=== PATIENT | male | born 1930 | race Caucasian/White ===

== ENCOUNTER 2018-06-30 22:58 | Inpatient (IN) | payer MEDICARE ==
[~2018-06-30] VITALS: Ht 182.9 cm; Wt 74.3 kg
[~2018-06-30 22:58] MED LIST: ACET325 PO; AMLO5 PO; AMOX875; BUDE32NIS; CIPR250 PO; CLON.1 PO; DILT240; DILT240 PO; FAMC500 PO; FAMO20 PO; FLUSAL5005; FURO20 PO; HYDACE5325 PO; IRON PO; Loperamide2 MG PO; METO50ER; NEBI10 PO; NEBI5 PO; NORT10 PO; OLME20 PO; OLMESARTAN MEDO40 MG PO; POTCHL10ER PO; PRED10; PRED10 PO; PRED5; PRED5 PO; STOMUL; TELM80/12.5 PO; VALS80
[2018-06-30 23:47] LABS: BASOPHILS ABSOLUTE AUTO 0.02 K/mm3 (0.00-0.23); BASOPHILS PERCENT AUTO 0 % (0-2); EOSINOPHILS ABSOLUTE AUTO 0.03 K/mm3 (0.00-0.68); EOSINOPHILS PERCENT AUTO 0 % (0-6); Hematocrit 31.3 % (37.0-53.0); Hemoglobin 9.9 g/dL (13.5-17.5); IMMATURE GRAN ABSOLUTE AUTO 0.07 K/mm3 (0.00-0.10); IMMATURE GRAN PERCENT AUTO 0 % (0-1); LYMPHOCYTES ABSOLUTE AUTO 1.59 K/mm3 (0.84-5.20); LYMPHOCYTES PERCENT AUTO 10 % (21-46); MONOCYTES ABSOLUTE AUTO 1.12 K/mm3 (0.16-1.47); MONOCYTES PERCENT AUTO 7 % (4-13); Mean Corpuscular HGB 29.7 pg (26.0-34.0); Mean Corpuscular HGB Conc 31.6 g/dL (31.5-36.5); Mean Corpuscular Volume 94 fL (80-100); Mean Platelet Volume 9.5 fL (9.1-12.4); NEUTROPHILS ABSOLUTE AUTO 12.97 K/mm3 (1.96-9.15); NEUTROPHILS PERCENT AUTO 82 % (41-73); Platelet Count 236 K/mm3 (150-400); RDW Coefficient Variation 13.3 % (11.7-14.2); RDW Standard Deviation 46.1 fL (35.1-46.3); Red Blood Cell Count 3.33 M/mm3 (4.30-5.90)
[2018-07-01 00:01] LABS: International Normalized Ratio 1.03; Prothrombin Time Results 10.9 Sec (9.7-11.5)
[2018-07-01] MEDS ORDERED: LISI20 PO (00:04)
[2018-07-01] MEDS ORDERED: HYDCHL12.5 PO (00:04)
[2018-07-01] MEDS ORDERED: OMEPRAZOLE20 MG PO (00:04)
[2018-07-01 00:06] LABS: Albumin, Blood 3.2 g/dL (3.4-5.0); Albumin/Globulin Ratio 1.1 (0.8-1.8); Bilirubin, Total 0.6 mg/dL (0.1-1.0); Bun/Creatinine Ratio 23.1 (12.0-20.0); Calcium, Blood 7.9 mg/dL (8.5-10.1); Creatinine, Blood 2.08 mg/dL (0.60-1.20); Globulin, Blood 2.8 g/dL (2.2-4.0); Potassium, Blood 4.9 mmol/L (3.5-5.5)
--- NOTE | 2018-07-01 04:10 | NUR ---
NOC SHIFT SUMMARY PT BROUGHT TO FLOOR THIS NIGHT AT 0245 IN THE COMPANY OF HIS TWO DAUGHTERS. HE IS HARD OF HEARING. HE IS PLEASANT AND COOPERATIVE WITH CARE. VSS. CURRENTLY APPEARS IN NO ACUTE DISTRESS. HE IS AAO TO PERSON, PLACE, FAMILY, AND KNOWS WHO THE PRESIDENT IS. NO BLOODY STOOLS AT THIS TIME. WILL CONTINUE TO MONITOR.
[2018-07-01 05:03] LABS: BASOPHILS ABSOLUTE AUTO 0.02 K/mm3 (0.00-0.23); BASOPHILS PERCENT AUTO 0 % (0-2); EOSINOPHILS ABSOLUTE AUTO 0.03 K/mm3 (0.00-0.68); EOSINOPHILS PERCENT AUTO 0 % (0-6); Hemoglobin 9.8 g/dL (13.5-17.5); IMMATURE GRAN ABSOLUTE AUTO 0.07 K/mm3 (0.00-0.10); IMMATURE GRAN PERCENT AUTO 1 % (0-1); LYMPHOCYTES ABSOLUTE AUTO 2.14 K/mm3 (0.84-5.20); LYMPHOCYTES PERCENT AUTO 15 % (21-46); MONOCYTES ABSOLUTE AUTO 1.15 K/mm3 (0.16-1.47); MONOCYTES PERCENT AUTO 8 % (4-13); Mean Corpuscular HGB 29.2 pg (26.0-34.0); Mean Corpuscular HGB Conc 31.6 g/dL (31.5-36.5); Mean Corpuscular Volume 92 fL (80-100); Mean Platelet Volume 9.2 fL (9.1-12.4); NEUTROPHILS ABSOLUTE AUTO 11.17 K/mm3 (1.96-9.15); NEUTROPHILS PERCENT AUTO 77 % (41-73); Platelet Count 214 K/mm3 (150-400); RDW Coefficient Variation 13.5 % (11.7-14.2); Red Blood Cell Count 3.36 M/mm3 (4.30-5.90); White Blood Cell Count 14.58 K/mm3 (4.00-11.30)
[2018-07-01 05:31] LABS: Albumin, Blood 3.1 g/dL (3.4-5.0); Albumin/Globulin Ratio 1.1 (0.8-1.8); Bun/Creatinine Ratio 21.5 (12.0-20.0); Calcium, Blood 8.2 mg/dL (8.5-10.1); Creatinine, Blood 2.05 mg/dL (0.60-1.20); Globulin, Blood 2.9 g/dL (2.2-4.0); Potassium, Blood 4.8 mmol/L (3.5-5.5)
[2018-07-01 10:47] LABS: Adenovirus F 40/41 Not Detected (NOT DETECT); Astrovirus Not Detected (NOT DETECT); Campylobacter Sp Not Detected (NOT DETECT); Cryptosporidium Not Detected (NOT DETECT); Cyclospora Cayetanensis Not Detected (NOT DETECT); E. Coli O157 Not Detected (NOT DETECT); Entamoeba Histolytica Not Detected (NOT DETECT); Enteroaggregative E. coli-EAEC Not Detected (NOT DETECT); Enteropathogenic E. coli-EPEC Not Detected (NOT DETECT); Enterotoxigenic E. coli-ETEC Not Detected (NOT DETECT); Giardia Lamblia Not Detected (NOT DETECT); Norovirus GI/GII Not Detected (NOT DETECT); Plesiomonas Shigelloides Not Detected (NOT DETECT); Rotavirus A Not Detected (NOT DETECT); Salmonella Sp Not Detected (NOT DETECT); Sapovirus Not Detected (NOT DETECT); Shiga Toxin-prod E. coli-STEC Not Detected (NOT DETECT); Shigella/Enteroin E. coli-EIEC Not Detected (NOT DETECT); Vibrio Cholerae Not Detected (NOT DETECT); Vibrio Sp Not Detected (NOT DETECT); Yersinia Enterocolitica Not Detected (NOT DETECT)
--- NOTE | 2018-07-01 13:50 | NUR ---
PT. TEMP OF 103.8 WAS COVERED WITH 500 MG TYLENOL, RETOOK TEMP AT 1350 AND TEMP STILL AT 101.1. BLANKETS REMOVED FROM BED AND ONLY A SHEET COVERING PT. ACROSS THE MIDDLE. SEVERAL FAMILY MEMBERS ARE PRESENT IN ROOM.
--- NOTE | 2018-07-01 19:05 | NUR ---
DR. SABILLON IN TO SEE PT. THIS EVENING. PLANS ON DOING A COLONOSCOPY ON PT TOMORROW AFTER OFFICE HOURS. FEELS THE PT. HAS ISCHEMIC COLITIS. PT. HAS RUN FEVER ALL DAY TODAY. HIGHEST WAS 103.8 KEPT UNDER CONTROL BY TYLENOL. PT. IMPULSIVE, DOES NOT USE CALL LIGHT, SWEARS HE PUSHES IT OR PULLS BR CORD BUT DOES NOT.
--- NOTE | 2018-07-02 03:48 | NUR ---
SHIFT SUMMARY PT ADMITTED FOR COLITIS. FULL CODE. CLEAR LIQUID DIET. WATER OR ICE CHIPS ONLY AT 0600. NPO AT 1400 FOR COLONOSCOPY. GOLYTELY STARTS AT 0600. NS RUNNING AT 75 MLS/HR. PT IS STANDBY ASSIST TO 1 ASSIST TO THE BR. TAKES MEDICATIONS WHOLE. 20G ARYA TO R FA. PT HAS HAD FEVER UP TO 103.8, INCREASED MONITORING AND PT UP TO 100, ADMINISTERED MEDS PER EMAR DOWN TO 99.7, WILL CONTINUE TO MONITOR. PT IS [place] WITH HEARING AID. DR SABILLON CONSULTED AND POSSIBLE ISCHEMIC COLITIS PER REPORT. THE PT PRESENTED WITH CHIEF C/O DIARRHEA ACCOMPANIED BY LL QUADRANT PAIN. [facility]. THE PT WITH NOTED PROBABLE COLITIS WITH INFECTION AND SEPSIS PER REPORT. THE PT IS PLEASENT AND COOPERATIVE WITH CARE. PT IS FORGETFUL WITH POOR SAFETY AWARENESS. PT HAS APPEARED TO SLEEP COMFORTABLY MOST OF THE NIGHT WITH NO APPARENT SIGNS OF ACUTE DISTRESS. FREQUENT VISUAL CHECKS PT DOES NOT USE CALL LIGHT APPROPRIATELY. BED ALARM FOR SAFETY.
[2018-07-02 05:26] LABS: BASOPHILS ABSOLUTE AUTO 0.02 K/mm3 (0.00-0.23); BASOPHILS PERCENT AUTO 0 % (0-2); EOSINOPHILS ABSOLUTE AUTO 0.05 K/mm3 (0.00-0.68); EOSINOPHILS PERCENT AUTO 0 % (0-6); Hematocrit 30.5 % (37.0-53.0); Hemoglobin 9.6 g/dL (13.5-17.5); IMMATURE GRAN ABSOLUTE AUTO 0.08 K/mm3 (0.00-0.10); IMMATURE GRAN PERCENT AUTO 1 % (0-1); LYMPHOCYTES ABSOLUTE AUTO 1.89 K/mm3 (0.84-5.20); LYMPHOCYTES PERCENT AUTO 13 % (21-46); MONOCYTES ABSOLUTE AUTO 1.13 K/mm3 (0.16-1.47); MONOCYTES PERCENT AUTO 8 % (4-13); Mean Corpuscular HGB 28.8 pg (26.0-34.0); Mean Corpuscular HGB Conc 31.5 g/dL (31.5-36.5); Mean Corpuscular Volume 92 fL (80-100); Mean Platelet Volume 9.5 fL (9.1-12.4); NEUTROPHILS ABSOLUTE AUTO 11.48 K/mm3 (1.96-9.15); NEUTROPHILS PERCENT AUTO 79 % (41-73); Platelet Count 193 K/mm3 (150-400); RDW Coefficient Variation 13.6 % (11.7-14.2); RDW Standard Deviation 45.3 fL (35.1-46.3); Red Blood Cell Count 3.33 M/mm3 (4.30-5.90); White Blood Cell Count 14.65 K/mm3 (4.00-11.30)
[2018-07-02 05:39] LABS: Albumin, Blood 2.9 g/dL (3.4-5.0); Bilirubin, Total 0.8 mg/dL (0.1-1.0); Bun/Creatinine Ratio 15.3 (12.0-20.0); Calcium, Blood 8.2 mg/dL (8.5-10.1); Creatinine, Blood 1.83 mg/dL (0.60-1.20); Potassium, Blood 4.3 mmol/L (3.5-5.5); Total Protein, Blood 5.9 g/dL (6.4-8.2)
[2018-07-02 05:43] LABS: Percent Saturation 4.7 % (20.0-50.0)
--- NOTE | 2018-07-02 18:47 | NUR ---
SUMMARY PT IS A/O X3, PLEASANT AFFECT, COOPERATIVE WITH BOWEL PREP. UP 1 ASSSIT TO BSC. FAMILY @ BEDSIDE T/O DAY. STOOLS BECAME CLEAR YELLOW W MUCOUS FLECKS APPROX 1200. PT NPO @ 1400. IV NS INFUSING @ 75 ML/HR, IV ANTIBX ZOSYN Q6. VSS. DAY LABORER ORCHARD UP TO GET PT FOR COLONOSCOPY W DR SABILLON @ APPROX 1800, FAMILY FOLLOW TO OR. VSS.
--- NOTE | 2018-07-02 19:08 | NUR ---
07/02/18 190 Jesse Concepcion History, Chart, Medications and Allergies reviewed before start of procedure.MONITOR INTACT WITH CONTINUOUS PULSE OXIMETRY AND INTERMITTENT BP.3-LEAD EKG REVIEWED WITH PHYSICIAN PRIOR TO START OF PROCEDURE.O2 VIA N/C INTACT THROUGHOUT SEDATION/PROCEDURE. Patient confirms NPO status and agrees with scheduled surgery.PATIENT DETERMINED TO BE ASA APPROPRIATE FOR PROPOFOL SEDATION PRIOR TO START OF PROCEDURE BY DR. SABILLON.
--- NOTE | 2018-07-03 06:50 | NUR ---
Rn summary: Pt was received from surgical center post colonoscopy at 2024. Patient is alert and oriented, is [place], Alert and oriented x3. Pt vital signs have been stable. Family was at bedside and Dr. Corea did talk with them about findings from the procedure. Pt has been pain free. Pt has rested fair, better the second half of shift. Call light in reach. Will continue to monitor.
[2018-07-03 08:33] LABS: BASOPHILS ABSOLUTE AUTO 0.03 K/mm3 (0.00-0.23); BASOPHILS PERCENT AUTO 0 % (0-2); EOSINOPHILS ABSOLUTE AUTO 0.17 K/mm3 (0.00-0.68); EOSINOPHILS PERCENT AUTO 2 % (0-6); Hematocrit 30.4 % (37.0-53.0); Hemoglobin 9.7 g/dL (13.5-17.5); IMMATURE GRAN ABSOLUTE AUTO 0.03 K/mm3 (0.00-0.10); IMMATURE GRAN PERCENT AUTO 0 % (0-1); LYMPHOCYTES ABSOLUTE AUTO 1.89 K/mm3 (0.84-5.20); LYMPHOCYTES PERCENT AUTO 20 % (21-46); MONOCYTES ABSOLUTE AUTO 0.61 K/mm3 (0.16-1.47); MONOCYTES PERCENT AUTO 7 % (4-13); Mean Corpuscular HGB 29.5 pg (26.0-34.0); Mean Corpuscular HGB Conc 31.9 g/dL (31.5-36.5); Mean Corpuscular Volume 92 fL (80-100); Mean Platelet Volume 9.6 fL (9.1-12.4); NEUTROPHILS ABSOLUTE AUTO 6.54 K/mm3 (1.96-9.15); NEUTROPHILS PERCENT AUTO 71 % (41-73); Platelet Count 221 K/mm3 (150-400); RDW Coefficient Variation 13.3 % (11.7-14.2); RDW Standard Deviation 45.5 fL (35.1-46.3); Red Blood Cell Count 3.29 M/mm3 (4.30-5.90); White Blood Cell Count 9.27 K/mm3 (4.00-11.30)
[2018-07-03 08:54] LABS: Bun/Creatinine Ratio 14.3 (12.0-20.0); Calcium, Blood 8.5 mg/dL (8.5-10.1); Creatinine, Blood 1.47 mg/dL (0.60-1.20); Potassium, Blood 4.1 mmol/L (3.5-5.5)
--- NOTE | 2018-07-03 14:40 | NUR ---
Chance was alert, friendly and in good humor. He was well supported by immediate and extended family. No indications of distress or anxiety. Her reported symptoms consitent with minor indegestion or reflux which were relayed by the family to the managing nurse. I provided social attention, positive life review and pastoral encouragement. The room responded well to the attention, care, and show of interest and concern.
--- NOTE | 2018-07-03 17:14 | NUR ---
SUMMARY PT IS A/O X3, PLEASANT AFFECT. 1 ASSIST TO BR. STATE WEAKNESS/FATIGUE. FAMILY ATTENTIVE, @ BEDSIDE T/O DAY. STATE CONCERNS PT MAY NEED PHYTHER, DR LEIJA IN TO SEE THEM, ANSWER QUESTIONS/CONCERNS, STATE WILL ORDER PHYTHER. CARRIER BLOWER STATE NOTICED SM AMT BLOOD IN STOOL TODAY. EXPLAINED TO PT/FAMILY THAT THIS IS NOT UNEXPECTED AFTER COLONOSCOPY, THEY STATE THAT DR SABILLON TOLD THEM THER MIGHT BE SM AMT BLOOD TODAY, STATE MULT POLYPS REMOVED & INTERNAL HEMORRHOIDS. H&H IMPROVED @ 9.7/30.4. BP HAS BEEN SOMEWHAT ELEVATED, DR LEIJA AWARE, HAS ADJUSTED BP MEDS. PT TOLERATING DIET WELL HOWEVER HAD SOME INDIGESTION THIS AFTERNOON, DR TELLEZ TO GIVE MICKEY MIST, PT STATE RELIEF. NO FEVER TODAY. IV NS @ 75 ML/HR & IVPB ZOSYN CONTINUE.
[2018-07-04 05:11] LABS: BASOPHILS ABSOLUTE AUTO 0.02 K/mm3 (0.00-0.23); BASOPHILS PERCENT AUTO 0 % (0-2); EOSINOPHILS ABSOLUTE AUTO 0.18 K/mm3 (0.00-0.68); EOSINOPHILS PERCENT AUTO 2 % (0-6); Hematocrit 26.9 % (37.0-53.0); Hemoglobin 8.6 g/dL (13.5-17.5); IMMATURE GRAN ABSOLUTE AUTO 0.03 K/mm3 (0.00-0.10); IMMATURE GRAN PERCENT AUTO 0 % (0-1); LYMPHOCYTES ABSOLUTE AUTO 1.88 K/mm3 (0.84-5.20); LYMPHOCYTES PERCENT AUTO 22 % (21-46); MONOCYTES ABSOLUTE AUTO 0.76 K/mm3 (0.16-1.47); MONOCYTES PERCENT AUTO 9 % (4-13); Mean Corpuscular HGB 28.9 pg (26.0-34.0); Mean Corpuscular Volume 90 fL (80-100); Mean Platelet Volume 9.4 fL (9.1-12.4); NEUTROPHILS ABSOLUTE AUTO 5.53 K/mm3 (1.96-9.15); NEUTROPHILS PERCENT AUTO 66 % (41-73); Platelet Count 189 K/mm3 (150-400); RDW Coefficient Variation 13.2 % (11.7-14.2); RDW Standard Deviation 43.8 fL (35.1-46.3); Red Blood Cell Count 2.98 M/mm3 (4.30-5.90)
[2018-07-04 05:35] LABS: Bun/Creatinine Ratio 15.7 (12.0-20.0); Calcium, Blood 8.2 mg/dL (8.5-10.1); Creatinine, Blood 1.72 mg/dL (0.60-1.20)
--- NOTE | 2018-07-04 05:47 | NUR ---
SHIFT SUMMARY PT HAD FEVER AT BEDTIME, MEDICATED WITH TYLENOL. SLEPT WELL T/O THE NIGHT. NO ACUTE EVENTS OVER NIGHT AND NO REPORTS OF BLOOD WITH BOWEL MOVEMENT THIS AM. WILL CONTINUE TO MONITOR.
[2018-07-04] MEDS ORDERED: METR500 (13:15)
--- NOTE | 2018-07-04 14:35 | NUR ---
PT. DISCHARGED HOME WITH DAUGHTER AND INSTRUCTIONS WENT OVER WITH HER. H/H TO FOLLOW PATIENT AT HOME.
== END 2018-07-04 14:40 | disposition home health service (06) | DRG 872 ==
LOC: ER 22:58 → MEDS 07-01 02:24 → ENPENDDIS 07-04 12:48 → MEDS 07-04 14:40
PROVIDERS: Emergency Medicine; Internal Medicine; Internal Medicine Gastroenterology; ADMIT Internal Medicine
PROC: 0DBH8ZX Excision of Cecum, Via Natural or Artificial Opening Endoscopic, Diagnostic (ICD-10-PCS; principal; 2018-07-02 17:45)
PROC: 0DBL8ZX Excision of Transverse Colon, Via Natural or Artificial Opening Endoscopic, Diagnostic (ICD-10-PCS; 2018-07-02 17:45)
PROC: 0DBP8ZX Excision of Rectum, Via Natural or Artificial Opening Endoscopic, Diagnostic (ICD-10-PCS; 2018-07-02 17:45)
PROC: 0W3P8ZZ Control Bleeding in Gastrointestinal Tract, Via Natural or Artificial Opening Endoscopic (ICD-10-PCS; 2018-07-02 17:45)
DX: A41.9 Sepsis, unspecified organism (principal); K55.9 Vascular disorder of intestine, unspecified; D69.3 Immune thrombocytopenic purpura; K52.9 Noninfective gastroenteritis and colitis, unspecified; K44.9 Diaphragmatic hernia without obstruction or gangrene; K21.9 Gastro-esophageal reflux disease without esophagitis; M10.9 Gout, unspecified; E86.0 Dehydration; K57.30 Diverticulosis of large intestine without perforation or abscess without bleeding; K64.8 Other hemorrhoids; D12.6 Benign neoplasm of colon, unspecified; I12.9 Hypertensive chronic kidney disease with stage 1 through stage 4 chronic kidney disease, or unspecified chronic kidney disease; N18.2 Chronic kidney disease, stage 2 (mild)
CPT/HCPCS: 36415; 80048; 80053; 82728; 83540; 83550; 83605; 84145; 85025; 85610; 85651; 87040; 87507; 88305; 93005; 93010; 96360; 96361; 97116; 97161; 97165; 99285-25; A9270-GY; J2543; J2704; J7030; J7040; J7120; J7512

== ENCOUNTER 2019-06-26 05:52 | Inpatient (IN) | payer OTHER, MEDICARE ==
[~2019-06-26] VITALS: Ht 180.3 cm; Wt 77.1 kg
[~2019-06-26 05:52] MED LIST changes: +HYDCHL12.5 PO; +LISI20 PO; +METR500; +OMEPRAZOLE20 MG PO; +Zithromax250 MG PO; +Zofran4 MG PO
[2019-06-26] MEDS ORDERED: HYDCHL25 PO (06:02)
[2019-06-26] MEDS ORDERED: LISI5 PO (06:02)
[2019-06-26] MEDS ORDERED: CITA20 PO (06:04)
[2019-06-26 06:24] LABS: BASOPHILS ABSOLUTE AUTO 0.03 K/mm3 (0.00-0.23); BASOPHILS PERCENT AUTO 0 % (0-2); EOSINOPHILS ABSOLUTE AUTO 0.05 K/mm3 (0.00-0.68); EOSINOPHILS PERCENT AUTO 0 % (0-6); Hematocrit 37.3 % (37.0-53.0); Hemoglobin 11.9 g/dL (13.5-17.5); IMMATURE GRAN ABSOLUTE AUTO 0.07 K/mm3 (0.00-0.10); IMMATURE GRAN PERCENT AUTO 1 % (0-1); LYMPHOCYTES ABSOLUTE AUTO 1.85 K/mm3 (0.84-5.20); LYMPHOCYTES PERCENT AUTO 12 % (21-46); MONOCYTES ABSOLUTE AUTO 1.42 K/mm3 (0.16-1.47); MONOCYTES PERCENT AUTO 10 % (4-13); Mean Corpuscular HGB 27.9 pg (26.0-34.0); Mean Corpuscular HGB Conc 31.9 g/dL (31.5-36.5); Mean Corpuscular Volume 87 fL (80-100); Mean Platelet Volume 9.5 fL (9.1-12.4); NEUTROPHILS ABSOLUTE AUTO 11.58 K/mm3 (1.96-9.15); NEUTROPHILS PERCENT AUTO 77 % (41-73); Platelet Count 228 K/mm3 (150-400); RDW Coefficient Variation 14.6 % (11.7-14.2); RDW Standard Deviation 46.9 fL (35.1-46.3); Red Blood Cell Count 4.27 M/mm3 (4.30-5.90)
[2019-06-26 06:39] LABS: Albumin, Blood 3.6 g/dL (3.4-5.0); Albumin/Globulin Ratio 0.9 (0.8-1.8); Bilirubin, Total 1.3 mg/dL (0.1-1.0); Bun/Creatinine Ratio 31.4 (12.0-20.0); Creatinine, Blood 1.72 mg/dL (0.60-1.20); Globulin, Blood 4.1 g/dL (2.2-4.0); Potassium, Blood 3.9 mmol/L (3.5-5.5); Total Protein, Blood 7.7 g/dL (6.4-8.2)
[2019-06-26 10:51] LABS: Adenovirus Not Detected (NOT DETECT); Coronavirus 229E Not Detected (NOT DETECT); Coronavirus HKU1 Not Detected (NOT DETECT); Coronavirus NL63 Not Detected (NOT DETECT); Coronavirus OC43 Not Detected (NOT DETECT); Human Metapneumovirus Not Detected (NOT DETECT); Human Rhinovirus/Enterovirus Not Detected (NOT DETECT); Influenza A/2009-H1 Not Detected (NOT DETECT); Influenza A/H1 Not Detected (NOT DETECT); Influenza A/H3 Not Detected (NOT DETECT); Influenza B Not Detected (NOT DETECT); Parainfluenza Virus 1 Not Detected (NOT DETECT); Parainfluenza Virus 2 Not Detected (NOT DETECT); Parainfluenza Virus 3 Not Detected (NOT DETECT); Parainfluenza Virus 4 Not Detected (NOT DETECT)
[2019-06-26 10:52] LABS: Bordetella pertussis Not Detected (NOT DETECT); Chlamydophila pneumoniae Not Detected (NOT DETECT); Mycoplasma pneumoniae Not Detected (NOT DETECT); Respiratory Syncytial Virus Not Detected (NOT DETECT)
[2019-06-26] MEDS ORDERED: A AND D OINTM42.5 G1 TOP (15:30)
[2019-06-26] MEDS ORDERED: AMLO5 PO (15:31)
[2019-06-26] MEDS ORDERED: ASCO500 PO (15:33)
[2019-06-26] MEDS ORDERED: Voltaren100 GM TOP (15:34)
[2019-06-26] MEDS ORDERED: Fergon240 M1 PO (15:35)
[2019-06-26] MEDS ORDERED: RECTIV30 GM TOP (15:42)
--- NOTE | 2019-06-26 16:20 | NUR ---
Chance was resting and appeared stable and undisturbed. No indications of visceral pain or anxiety noted. He roused to acoustic interference and responded favorably to social presence, verbal encouragement and prayer. 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 I got the disticnt impression, that although he recognized me, he couldnt fully contextualize me. He thanked me for the visit. I reported to the RN that Chance's hearing aid was displaced on his bed covers. She said that she would collect it and put it in a container for safe keeping and loss prevention. Lambert Hernandez ThD
--- NOTE | 2019-06-26 18:22 | NUR ---
SHIFT SUMMARY PATIENT IS CONFUSED AND EXTREMELY HARD OF HEARING. HE IS REQURING 4L O2 AT THIS TIME. CONTINUES TO TAKE IT OFF HIS FACE. SLEEPING MUCH OF SHIFT. THIS RN HAS BEEN IN CONTACT WITH THE HOSPITALIST REGARDING INCREASED HR. GIVEN ORAL IBUPROFEN PER EMAR. ON TELE. REQUESTS TO CONTINUE TO MONITOR.
[2019-06-27 04:39] LABS: BASOPHILS ABSOLUTE AUTO 0.02 K/mm3 (0.00-0.23); BASOPHILS PERCENT AUTO 0 % (0-2); EOSINOPHILS ABSOLUTE AUTO 0.01 K/mm3 (0.00-0.68); EOSINOPHILS PERCENT AUTO 0 % (0-6); Hematocrit 35.3 % (37.0-53.0); Hemoglobin 11.2 g/dL (13.5-17.5); IMMATURE GRAN ABSOLUTE AUTO 0.07 K/mm3 (0.00-0.10); IMMATURE GRAN PERCENT AUTO 1 % (0-1); LYMPHOCYTES ABSOLUTE AUTO 0.79 K/mm3 (0.84-5.20); LYMPHOCYTES PERCENT AUTO 6 % (21-46); MONOCYTES ABSOLUTE AUTO 1.25 K/mm3 (0.16-1.47); MONOCYTES PERCENT AUTO 9 % (4-13); Mean Corpuscular HGB Conc 31.7 g/dL (31.5-36.5); Mean Corpuscular Volume 88 fL (80-100); Mean Platelet Volume 9.5 fL (9.1-12.4); NEUTROPHILS ABSOLUTE AUTO 11.47 K/mm3 (1.96-9.15); NEUTROPHILS PERCENT AUTO 84 % (41-73); Platelet Count 191 K/mm3 (150-400); RDW Coefficient Variation 14.8 % (11.7-14.2); RDW Standard Deviation 47.6 fL (35.1-46.3); White Blood Cell Count 13.61 K/mm3 (4.00-11.30)
[2019-06-27 04:56] LABS: Bun/Creatinine Ratio 28.1 (12.0-20.0); Calcium, Blood 8.5 mg/dL (8.5-10.1); Creatinine, Blood 1.96 mg/dL (0.60-1.20); Potassium, Blood 4.3 mmol/L (3.5-5.5)
--- NOTE | 2019-06-27 05:37 | NUR ---
SHIFT SUMMARY ASSUMED CARE OF PT AT 1900. PT IS ALERT BUT NOT ORIENTED. PT IS VERY [place] PATIENT DOES NOT ANSWER QUESTIONS WHEN ASKED AND STARES. WHEN CHANGING THE PT THE PT LEGS AND ARMS SHOOK UNCONTROLABLY. HEART SOUNDS TACHY, PICKING SUPERVISOR STATED SINUS WITH PVC @ 110. LUNG SOUNDS CLEAR, PT WAS TURNED DOWN TO 3L NC PER RT. DURING THE NIGHT PT HR INCREASED INTO THE 120'S PER PICKING SUPERVISOR. UPON ASSESSMENT OF VITALS, BP WAS INCREASE TO ABOVE 170 SYSTOLIC, AND OXYGEN SATURATION WAS AT 85%, PT HAD TAKEN OFF O2 BUT EVEN WHEN PUT BACK ON SATURATIONS STAYED AT 88-90%, PT GIVEN HYDRALAZINE AND BP DECREASED TO 150'S SYSTOLIC. OXYGEN SATURATION STAYED AT 88%, TURNED UP TO 4L AND STILL THE SATURATION ONLY WHEN TO 90%. RT NOTIFIED AND LUNG SOUNDS NOW HAVE CRACKLES, UPON ASSESSMENT, PT WAS ON HYDROCHLOROTHIAZIDE BEFORE THE HOSPITAL, RT SUGGESTED THAT PT GET IV LASIX. HOSPITALIST NOTIFIED AND GIVEN 40MG LASIX. PT ALSO HAD ELEVATED TEMP DURING THE NIGHT. PT FAMILY CALLED FOR AN UPDATE, WHEN MENTIONED THE PATIENTS INCREASED TEMP SOMETIMES MEANS THAT HE HAS A UTI. PT TEMP WAS DIFFICULT TO GET ACCURATLY DUE TO BITING OF THE ORAL THERMOMETER. TYLENOL GIVEN ONCE AND THEN PT WAS 'ICED', REASSESSMENT SHOWED ORAL TEMP AT 98.4. HOSPITALIST NOTIFIED OF THIS AND ASKED FOR UA. STRAIGHT CATH WAS UNSUCCESSFUL DUE TO HX OF BPH. PT HADNT ATTEMPTES TO GET OUT OF BED UNIL 0550 THIS AM AND IT WAS BECUASE HE HAD TO PEE. SAMPLE WAS SENT TO LAB. CALL LIGHT IN REACH, BED IN LOWEST POSITION, WILL CONTINUE TO MONITOR UNTIL DAYSHIFT NURSE ARRIVES.
[2019-06-27 06:08] LABS: Source, Urine Catheter
[2019-06-27 06:13] LABS: Bilirubin, Urine Neg (Neg); Blood, Urine 1+ (Neg); Glucose Qualitative, Urine Neg (Neg); Ketones, Urine Neg (Neg); Leukocyte Esterase, Urine Neg (Neg); Nitrite, Urine Neg (Neg); Protein, Urine 2+ (Neg); Urobilinogen, Urine NORM (Normal)
[2019-06-27 06:20] LABS: Appearance, Urine Clear (Clear); Color, Urine Yellow (P-Yellow)
[2019-06-27 06:21] LABS: Amorphous Light (0-Heavy); Bacteria Rare /hpf; Red Blood Cells, Urine 0-2 /hpf (0-2); Squamous Epithelial Cells Rare /hpf (Few); White Blood Cells, Urine 0-2 /hpf (0-5)
[2019-06-27 06:24] LABS: Other Crystals Many /hpf
--- NOTE | 2019-06-27 18:01 | NUR ---
SHIFT SUMMARY PATIENT DENIES PAIN, NAUSEA, AND SHORTNESS OF BREATH. PATIENT PLEASANTLY CONFUSED AND VERY HARD OF HEARING. PATIENT UP IN RECLINER WITH 2 ASSIST AND GAIT BELT/FWW. PATIENT GIVEN TYLENOL X1 FOR FEVER OF 101.7 THIS EVENING. CALL LIGHT IN REACH.
[2019-06-28 04:57] LABS: BASOPHILS ABSOLUTE AUTO 0.03 K/mm3 (0.00-0.23); BASOPHILS PERCENT AUTO 0 % (0-2); EOSINOPHILS PERCENT AUTO 0 % (0-6); Hematocrit 37.1 % (37.0-53.0); Hemoglobin 11.4 g/dL (13.5-17.5); IMMATURE GRAN ABSOLUTE AUTO 0.09 K/mm3 (0.00-0.10); IMMATURE GRAN PERCENT AUTO 1 % (0-1); LYMPHOCYTES ABSOLUTE AUTO 1.18 K/mm3 (0.84-5.20); LYMPHOCYTES PERCENT AUTO 8 % (21-46); MONOCYTES ABSOLUTE AUTO 1.16 K/mm3 (0.16-1.47); MONOCYTES PERCENT AUTO 8 % (4-13); Mean Corpuscular HGB 27.7 pg (26.0-34.0); Mean Corpuscular HGB Conc 30.7 g/dL (31.5-36.5); Mean Corpuscular Volume 90 fL (80-100); Mean Platelet Volume 9.9 fL (9.1-12.4); NEUTROPHILS PERCENT AUTO 84 % (41-73); Platelet Count 243 K/mm3 (150-400); RDW Coefficient Variation 15.3 % (11.7-14.2); RDW Standard Deviation 50.5 fL (35.1-46.3); Red Blood Cell Count 4.12 M/mm3 (4.30-5.90); White Blood Cell Count 15.06 K/mm3 (4.00-11.30)
[2019-06-28 05:16] LABS: Albumin, Blood 3.1 g/dL (3.4-5.0); Anion Gap 13 mmol/L (6-16); Blood Urea Nitrogen 72 mg/dL (8-24); Bun/Creatinine Ratio 31.2 (12.0-20.0); CO2, Blood 23 mmol/L (21-32); Calcium, Blood 8.9 mg/dL (8.5-10.1); Chloride, Blood 107 mmol/L (98-108); Creatinine, Blood 2.31 mg/dL (0.60-1.20); Glomerular Filtration Rate 29 (60-); Glucose, Blood 113 mg/dL (70-99); Phosphorus, Blood 3.9 mg/dL (2.5-4.9); Potassium, Blood 4.4 mmol/L (3.5-5.5); Sodium, Blood 143 mmol/L (136-145)
--- NOTE | 2019-06-28 05:28 | NUR ---
SHIFT SUMMARY ASSUMED CARE OF PT AT 1900. PT IS ALERT BUT NOT ORIENTED, PT IS VERY [place] EVEN WITH HEARING AIDES AND CANT UNDERSTAND BASIC COMMANDS, SUCH TO CLOSE MOUTH ON ORAL THERMOMETER STICK. HEART SOUNDS REGULAR, LUNG SOUNDS CLEAR WITH FINE CRACKLES ON THE R SIDE. PT REPEATIVLY TAKES OFF O2 DURING THE NIGHT. O2 SATURATION AT 88-91% ON 4L NC. PT HAS BEEN FEBRILE T/O THE NIGHT. TYLENOL GIVEN, PT STILL AT 100.1 DEGREES RECTALLY. PT ATTEMPTED TO GET OUT OF BED ONCE. PT WAS INCON T/O THE NIGHT. PT DID NOT SLEEP WHEN DURING THE NIGHT. CALL LIGHT IN REACH, BED IN LOWEST POSTION, WILL CONTINUE TO MONITOR UNTIL DAYSHIFT NURSE ARRIVES.
--- NOTE | 2019-06-28 16:48 | NUR ---
SHIFT SUMMARY PATIENT DENIES PAIN, NAUSEA, AND SHORTNESS OF BREATH. PATIENT BECOMES DYSPNEIC AT TIMES. PRN BREATHING TX NEEDED. PATIENT NEEDS TO BE FREQUENTLY REMINDED TO LEAVE HIS OXYGEN IN PLACE. PATIENT TREMULOUS AT TIMES. PATIENT'S DAUGHTER STATES THIS IS NORMAL FOR PATIENT. PATIENT HAD CXR TODAY. PATIENT UP IN CHAIR THE FIRST HALF OF SHOFT. PATIENT GIVEN TYLENOL FOR LOW GRADE FEVER X2 THIS SHIFT. CALL LIGHT IN REACH.
[2019-06-28 23:15] LABS: PCO2 Arterial 34.2 mmHg (35-45); PO2 Arterial 68.4 mmHg (80-100); pH Blood Arterial 7.46 (7.35-7.45)
--- NOTE | 2019-06-29 00:08 | NUR ---
SUMMARY PT FOUND AT BEGINNING OF SHIFT FEBRILE W/ NOTED TREMORS. PT WAS O2 VIA NC @ 5 LPMS. APPOX 2200 HRS PT WAS NOTED TO HAVE INCREASED RESP. RATE AND HR. PT SPO2 WAS FOUND TO BE IN 80'S. RT EVALUATED PT AND STATED PT MAY BENEFIT FROM CPAP. PROVIDER EDY CALLED AND INFORMED OF SITUATION. PROVIDER ORDERED CPAP, TELE AND CONTINOUS SPO2 MONITORING. PROVIDER ASSESSED PT AND FOUND PT TO REQUIRE INTUBATION AND ORDERED PT TRANSFER TO ICU.
[2019-06-29 03:16] LABS: Source, Urine Catheter
[2019-06-29 03:17] LABS: Bilirubin, Urine Neg (Neg); Blood, Urine 5+ (Neg); Glucose Qualitative, Urine Neg (Neg); Ketones, Urine 1+ (Neg); Leukocyte Esterase, Urine 1+ (Neg); Nitrite, Urine Neg (Neg); Protein, Urine 3+ (Neg); Specific Gravity, Urine 1.015 (1.003-1.022); Urobilinogen, Urine NORM (Normal)
[2019-06-29 03:29] LABS: BASOPHILS ABSOLUTE AUTO 0.03 K/mm3 (0.00-0.23); BASOPHILS PERCENT AUTO 0 % (0-2); EOSINOPHILS PERCENT AUTO 0 % (0-6); Hematocrit 34.4 % (37.0-53.0); Hemoglobin 10.7 g/dL (13.5-17.5); IMMATURE GRAN ABSOLUTE AUTO 0.08 K/mm3 (0.00-0.10); IMMATURE GRAN PERCENT AUTO 1 % (0-1); LYMPHOCYTES PERCENT AUTO 8 % (21-46); MONOCYTES ABSOLUTE AUTO 1.07 K/mm3 (0.16-1.47); MONOCYTES PERCENT AUTO 7 % (4-13); Mean Corpuscular HGB Conc 31.1 g/dL (31.5-36.5); Mean Corpuscular Volume 90 fL (80-100); Mean Platelet Volume 9.6 fL (9.1-12.4); NEUTROPHILS ABSOLUTE AUTO 13.22 K/mm3 (1.96-9.15); NEUTROPHILS PERCENT AUTO 85 % (41-73); Platelet Count 245 K/mm3 (150-400); RDW Coefficient Variation 15.5 % (11.7-14.2); RDW Standard Deviation 50.8 fL (35.1-46.3); Red Blood Cell Count 3.82 M/mm3 (4.30-5.90)
[2019-06-29 03:39] LABS: Appearance, Urine Hazy (Clear); Color, Urine Yellow (P-Yellow); Red Blood Cells, Urine TNTC /hpf (0-2)
[2019-06-29 03:40] LABS: Amorphous Light (0-Heavy); Bacteria Few /hpf; Squamous Epithelial Cells Few /hpf (Few)
[2019-06-29 03:50] LABS: Albumin, Blood 3.1 g/dL (3.4-5.0); Anion Gap 11 mmol/L (6-16); Blood Urea Nitrogen 91 mg/dL (8-24); Bun/Creatinine Ratio 33.1 (12.0-20.0); CO2, Blood 25 mmol/L (21-32); Calcium, Blood 8.6 mg/dL (8.5-10.1); Chloride, Blood 110 mmol/L (98-108); Creatinine, Blood 2.75 mg/dL (0.60-1.20); Glomerular Filtration Rate 23 (60-); Glucose, Blood 94 mg/dL (70-99); Phosphorus, Blood 4.2 mg/dL (2.5-4.9); Sodium, Blood 146 mmol/L (136-145)
--- NOTE | 2019-06-29 05:44 | NUR ---
ASSUMED PT CARE/END OF SHIFT SUMMARY PT TRANSFERRED TO ICU FROM MEDICAL FLOOR SECONDARY TO INCREASED OXYGEN DEMANDS AND WORK OF BREATHING. PT ARRIVED WITH 15L VIA OXYMIZER WITH BIOX LOW 90'S. PT SWITCHED TO CPAP WITH 5L BLEED IN WITH BIOX 96%. PT REMAINS TACHYPNEIC WITH RESP RATE 20-30'S. LUNG SOUNDS REMAIN CLEAR T/O ALL LOBES. RHYTHM APPEARED IRREGULAR AND AFIB AT FIRST D/T TREMORS; HOWEVER, ONCE TREMORS SETTLED A LITTLE IT APPEARED PT WAS IN WAP WITH A HR 120-130'S. BP'S ELEVATED WITH SBP 160'S-190'S. PT MEDICATED WITH 10MG OF LEBATOLOL PER ORDERS; RESULTING IN SBP'S 140-150'S. PT IS VERY [place] AND NOTED TO BE NONVERBAL. STARES AT CEILING; HOWEVER, ABLE TO TRACK WITH EYES. PT APPEARS VERY ANXIOUS AND SCARED; ATTEMPTED TALK DOWN TECHNIQUE; HOWEVER, UNEFFECTIVE. PT APPEARS VERY CONFUSED SECONDARY TO DEMENTIA DX. WILL CONTINUE TO REASSURE ON AN ONGOING BASIS. 14F COUDE HASSAN CATHETER PLACED AND UA SENT PER PROTOCOL; PT IS PUTTING OUT DARK, ELIZABETH COLORED URINE; 100CC THIS SHIFT. PT MEDICATED WITH TYLENOL 650MG VA X2 AND ASPIRIN 300MG VA X1 D/T ELEVATED TMAX OF 103.1. PT IS CURRENTLY AT 99.7 AFTER BEING MEDICATED AND ICE PACKS BEING PLACED. PT IS A HIGH FALL RISK AND REMAINS ON THE CAMERA, WELL HAS THE BED ALARM IN PLACE. WILL CONTINUE TO MONITOR UNTIL REPORT IS HANDED OFF TO ONCOMING RN.
--- NOTE | 2019-06-29 09:38 | NUR ---
CARE ASSUMED ASSESSMENT COMPLETED, PT NONVERBAL AT THIS TIME, DOES NOT FOLLOW DIRECTIONS, DOES TRACK. TREMULOUS IN ALL EXTREMS, STIFF. HR 100-120 IRREGULAR, APPEARS TO BE AFIB, BP STABLE, NO EDEMA NOTED. LS CLEAR, PT ON CPAP, TOLERATING WELL. ATTENDS CHANGED, PT REPOSITIONED, SAT UP IN BED TO ATTEMPT BREAKFAST. PT WOULD NOT CHEW OR SWALLOW FOOD, FOOD REMOVED AND ORAL CARE PROVIDED. CPAP BACK ON. DR. GALDAMEZ AT BEDSIDE, NEW ORDERS RECEIVED. RECTAL TYLENOL ADMINISTERED FOR FEVER, ICE PACKS UNDER ARMS, TEMP DECREASED TO 99.3 AFTER INTERVENTIONS. RECTAL PROBE THERMOMETER INSERTED, READS 100.0. WILL UPDATE DAUGHTER.
--- NOTE | 2019-06-29 10:56 | NUR ---
UPDATE EKG COMPLETED, RHYTHM IS AFIB, DR. GALDAMEZ NOTIFIED. WILL NOTIFY FAMILY OF APPROVAL TO VISIT PT, PT REMAINS FULL CODE STATUS AT THIS TIME PER PT'S DAUGHTER AND DR. GALDAMEZ.
[2019-06-29 11:28] LABS: PCO2 Arterial 32.5 mmHg (35-45); PO2 Arterial 78.7 mmHg (80-100); pH Blood Arterial 7.45 (7.35-7.45)
[2019-06-29 12:19] LABS: Magnesium, Blood 2.7 mg/dL (1.6-2.4)
[2019-06-29 12:21] LABS: Thyroid Stimulating Hormone 1.53 uIU/mL (0.360-4.800)
--- NOTE | 2019-06-29 12:25 | NUR ---
Echocardiogram completed.
--- NOTE | 2019-06-29 13:26 | NUR ---
UPDATE DR. PELAEZ IN TO CONSULT, NEW ORDERS. ATIVAN AND KEPPRA ADMINISTERED FOR TREMORS, MINIMAL RELIEF NOTED. ECHO COMPLETED, REPORTED EF 45-50% PER CURB AND GUTTER LABORER. LS REMAIN CLEAR, CPAP ON WITH 5L BLEED IN, TOLERATING CPAP WELL. PT MEDICATED FOR HYPERTENSION AND TACHYCARDIA. TEMPERATURE REMAINS BELOW 100.0 PER RECTAL PROBE, WILL CONTINUE TO MONITOR. PLANNING FOR CT LATER TODAY AND EEG EARLY NEXT WEEK. AND SON IN TO SEE PATIENT AT THIS TIME. TREMORS AND RESTLESSNESS HAVE DECREASED BUT REMAIN MILDLY PRESENT.
--- NOTE | 2019-06-29 15:16 | NUR ---
UPDATE PT'S AND SON AT BEDSIDE, REPORT THAT PT IS USUALLY VERBAL AND ABLE TO COMMUNICATE NEEDS. PT REMAINS RESTLESS WITH EYES CLOSED MOST OF THE TIME, OCCASIONAL MOANING NOTED BUT NO WORDS. PT NOT INTERACTING WITH FAMILY. NEURO STATUS UNCHANGED SINCE AM ASSESSMENT. BP IMPROVED AFTER LABETOLOL, HR REMAINS 100-[address] PELAEZ IN TO SPEAK WITH PT'S FAMILY REGARDING PLAN OF CARE, PT REMAINS FULL CODE. TEMP 99.7.
--- NOTE | 2019-06-29 16:21 | NUR ---
UPDATE ATTEMPTED HEAD CT, PT UNABLE TO LIE STILL FOR TEST, DOES NOT FOLLOW DIRECTIONS. DR. PELAEZ AWARE THAT CT WAS UNSUCCESSFUL.
--- NOTE | 2019-06-29 19:16 | NUR ---
END OF SHIFT PRECEDEX INITIATED AND TITRATED UP TO 0.7 FOR RESTLESSNESS/AGITATION PER DR. PELAEZ, MINIMAL EFFECT NOTED. SWB RESTRAINTS APPLIED PT REPEATEDLY WAS PULLING AT CPAP MASK AND CAUSING DESATURATIONS, IS NOT REDIRECTABLE. PT HAS BECOME MORE DROWSY T/O SHIFT, EYES REMAIN CLOSED MOST OF THE TIME, PT DOES NOT APPEAR TO BE TRACKING. MAKES RARE VERBAL NOISES, NO WORDS, WHICH FAMILY REPORTS IS UNUSUAL, HE IS ABLE TO COMMUNICATE AT BASELINE. [address] DOBHOFF WITHOUT SUCCESS. HR 100-110 AFIB, BP WNL AT THIS TIME, ONE DOSE OF LABETOLOL ADMINISTERED THIS SHIFT. LS REMAIN CLEAR, CPAP WITH 5L BLEED IN, SPO2 MID 90'S. BEDBATH GIVEN, ATTENDS CHANGED, PT REPOSITIONED. FAMILY TO DISCUSS PLAN OF CARE AND CODE STATUS TOMORROW WHEN PT'S YOUNGER SON ARRIVES TO [facility]. REPORT TO ONCOMING SHIFT.
--- NOTE | 2019-06-29 19:46 | NUR ---
ASSUMED CARE NOTE: ASSUMED CARE OF PT AT 1900, RECEVIED REPORT FROM FELICITY RAE. UPON ENTERING ROOM PT IS ABLE TO RESPOND TO PAINFUL STIMULI. PT EYES ARE CLOSED AND HE IS UNABLE TO TRACK. PT IS NONVERBAL AND MOANS OCCASIONALLY. PT IS ON CPAP CONNECTED TO 5L OF OXYGEN, SPO2 ABOVE 90% PT IS ON PRECEDEX 0.7MCG/KG/HR, HOWEVER, SEEMS TO HAVE NO EFFECT FOR HIS RESTLESSNESS/AGITATION. PT IS ON BILAT SOFT WRIST RESTRAINTS, DUE TO PT ATTEMPTING TO REMOVE CPAP MASK. HASSAN PATENT AND DRAINING YELLOW CLEAR URINE. WILL CONTINUE TO MONITOR PT/TO SHIFT.
--- NOTE | 2019-06-30 02:32 | NUR ---
UPDATE: PT HAS BEEN RESTLESS THE PAST HOUR. HE IS PULLING AT LINES AND TUBES. PT DOES NOT OPEN EYES FOR VERBAL STIMULI. PT CONTINUES TO MOAN ANS IS UNABLE TO COMMUNICATE VERBALLY. STIMULI IN THE ROOM IS KEPT TO A MINIMUM, LIGHT TURNED DOWN. PT TEMP IS SLOWLY RISING. WILL CONTINUE TO MONITOR.
[2019-06-30 03:29] LABS: BASOPHILS ABSOLUTE AUTO 0.04 K/mm3 (0.00-0.23); BASOPHILS PERCENT AUTO 0 % (0-2); EOSINOPHILS PERCENT AUTO 1 % (0-6); Hematocrit 32.7 % (37.0-53.0); IMMATURE GRAN ABSOLUTE AUTO 0.04 K/mm3 (0.00-0.10); IMMATURE GRAN PERCENT AUTO 0 % (0-1); LYMPHOCYTES ABSOLUTE AUTO 1.06 K/mm3 (0.84-5.20); LYMPHOCYTES PERCENT AUTO 10 % (21-46); MONOCYTES ABSOLUTE AUTO 0.71 K/mm3 (0.16-1.47); MONOCYTES PERCENT AUTO 7 % (4-13); Mean Corpuscular HGB Conc 30.6 g/dL (31.5-36.5); Mean Corpuscular Volume 92 fL (80-100); Mean Platelet Volume 9.6 fL (9.1-12.4); NEUTROPHILS ABSOLUTE AUTO 8.21 K/mm3 (1.96-9.15); NEUTROPHILS PERCENT AUTO 81 % (41-73); Platelet Count 193 K/mm3 (150-400); RDW Coefficient Variation 15.1 % (11.7-14.2); RDW Standard Deviation 50.6 fL (35.1-46.3); Red Blood Cell Count 3.57 M/mm3 (4.30-5.90); White Blood Cell Count 10.16 K/mm3 (4.00-11.30)
[2019-06-30 03:46] LABS: Albumin, Blood 2.4 g/dL (3.4-5.0); Anion Gap 10 mmol/L (6-16); Blood Urea Nitrogen 89 mg/dL (8-24); Bun/Creatinine Ratio 37.4 (12.0-20.0); CO2, Blood 23 mmol/L (21-32); Chloride, Blood 116 mmol/L (98-108); Creatinine, Blood 2.38 mg/dL (0.60-1.20); Glomerular Filtration Rate 28 (60-); Glucose, Blood 76 mg/dL (70-99); Phosphorus, Blood 4.5 mg/dL (2.5-4.9); Potassium, Blood 4.4 mmol/L (3.5-5.5); Sodium, Blood 149 mmol/L (136-145)
--- NOTE | 2019-06-30 05:41 | NUR ---
SHIFT SUMMARY: SEE PREVIOUS NOTES. PT HAS BEEN RESTLESS OFF AND ON ALL NIGHT. WHEN TOUCHED OR MOVED, PT BEGINS TO SHAKE/TREMBLE AND MOAN. PT HAS NO OPENED EYES SPONTANEOUSLY OR ON COMMAND. PT WITHDRAWS FROM PAINFUL STIMULI. PT IS UNABLE TO FOLLOW ANY COMMANDS. PT CONTINUES TO BE ON CPAP WITH 5L OF 02 BLEEDING IN, SPO2 ABOVE 90% NO COUGH NOTED. LUNG SOUNDS DIMINISHED IN THE LOWER BASES. PT HAS RECEVIED ORAL CARE Q4H. PT CONTINUES TO BE IN AFIB-WITH HR BETWEEN 60-80 BPM. BLOOD PRESSURE STABLE. TEMP CURRENTLY AT 99.3. HASSAN PATENT AND DRAINING CLEAR YELLOW URINE. WILL CONTINUE TO MONITOR PT UNTIL REPORT IS GIVEN TO ONCOMING SHIFT
--- NOTE | 2019-06-30 08:11 | NUR ---
CARE ASSUMED ASSESSMENT COMPLETED. PT RESTING IN BED WITH EYES CLOSED, ONLY OPENS EYES AND MOANS TO NOXIOUS STIMULI, NO TRACKING, WORDS OR PURPOSEFUL MOEMENT NOTED, KENN[place], IS RESTLESS AT TIMES. CPAP ON WITH 5L BLEED IN, TEMP 99.9 PER RECTAL PROBE, VSS, AFIB. ORAL CARE PROVIDED, PT REPOSITIONED, PT ATTEMPTING TO PULL AT CPAP MASK, SWB REMAIN IN PLACE. PRECEDEX INFUSING AT 0.7MCG/KG/HR, 0.45% NS AT 75ML/HR.
--- NOTE | 2019-06-30 10:44 | NUR ---
UPDATE PT STATUS AND APPEARANCE UNCHANGED FROM AM ASSESSMENT. REPOSITIONED, ATTENDS CHANGED. FAMILY AT BEDSIDE, PLANNING FOR COMFORT CARE TODAY.
--- NOTE | 2019-06-30 11:00 | NUR ---
Clinical Visit: There are four family members at bedside. Pt is very uncomfortable and agitated. Nurse states that he has been this way - medications cannot be given to contribute to his comfort due to his breathing status. Reviewed pt's current condition, age, and frailty with the family members. Questions answered. They request time to think about next steps. Spoke to them about suffering and end stage. No other questions from family and they are requesting time alone. Will remain available.
--- NOTE | 2019-06-30 11:57 | NUR ---
Call back - Pt was surrounded by family and appears to be agitated. Non-responsive at this time. 4 children are present and one of the daughters state the pt's spouse visited yesterday, but it was difficult for her. Provided empathic listening, pastoral presence and a supplication on behalf of all present. 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
--- NOTE | 2019-06-30 13:25 | NUR ---
UPDATE PT UNCHANGED. FAMILY REMAINS AT BEDSIDE, JUST SPOKE WITH DR. PELAEZ AGAIN, DECISION MADE TO KEEP PATIENT FULL CODE AND FULL TREATMENT OVER THE NEXT COUPLE OF DAYS, INTUBATION ACCEPTABLE IF NECESSARY.
--- NOTE | 2019-06-30 15:08 | NUR ---
UPDATE PT HAD AN 8 BEAT RUN OF VT, THEN BACK TO AFIB RATE 70'S. NO CHANGES NOTED IN PATIENT'S NEURO STATUS, REMAINS INTERMITTENTLY RESTLESS AND MAKES OCCASIONAL NOISES, NO TRACKING, DOES NOT FOLLOW COMMANDS. SHORT BREAK GIVEN FROM RESTRAINTS, PT REACHING FOR CPAP MASK AND HOLDING ON TO HASSAN TUBE, SWB REPLACED. PT REPOSITIONED, CPAP REMAINS ON WITH 5L, NO CHANGES NOTED.
--- NOTE | 2019-06-30 18:42 | NUR ---
END OF SHIFT PT REMAINS RESTLESS, DOES NOT TRACK OR FOLLOW DIRECTIONS. SOME PURPOSEFUL MOVEMENT NOTED INTERMITTENTLY TODAY WHEN PATIENT WAS REACHING TO PULL CPAP MASK OFF, OTHER MOVEMENTS APPEAR NON PURPOSEFUL. HR 60'S-70'S AFIB, NO ADDITIONAL RUNS OF VT, BP STABLE. MEDICATED X1 FOR FEVER THIS EVENING. CPAP REMAINS ON WITH 5L O2, LS CLEAR AND DIM IN BASES THIS EVENING. PRECEDEX REMAINS AT 0.7MCG. DAUGHTER UPDATED. REPORT TO ONCOMING SHIFT.
--- NOTE | 2019-06-30 19:34 | NUR ---
ASSUMED CARE NOTE: ASSUMED CARE OF PT AT 1900, RECEVIED REPORT FROM FELICITY RAE. PT IS RESPONSIVE TO PAIN. IS NON-RESPONSIVE TO VERBAL STIMULI, IS UNABLE TO OPEN EYES SPONTANEOUSLY. PT IS AGITATED AND MOVING HANDS AND FEET WITHOUT A PURPOSE. PT IS UNABLE TO BE COMFORTED WITH PHYSICAL TOUCH. PT IS ATTEMPTING TO TAKE OFF CPAP MASK. PT IS IN BILAT SOFT WRIST RESTRAINTS. PT WAS SIDEWAYS IN BED, PT WAS THEN REPOSITIONED AND ATTENDS WERE CHANGED. PT IS IN AFIB WITH HR BETWEEN 60-70 BMP. PT HAS A HASSAN DRAINING TO GRAVITY, CLEAR YELLOW URINE NOTED. PT HAS A RECTAL PROBE TEMP, READING 99.3. PRECEDEX RUNNING AT 0.7MCG/KG/HR. BED AT LOWEST LEVEL. WILL CONTINUE TO MONITOR PT T/O SHIFT.
--- NOTE | 2019-06-30 21:25 | NUR ---
UPDATE: PT OPENED EYES SPONTANEOUSLY. CPAP WAS REMOVED AND PT WAS PLACED ON 5L OF O2 VIA OXIMYZER, SPO2 AT 97%. ORAL CARE WAS PROVIDED. PT OPENED MOUTH AND SAID " I AM HURTING" WHEN ASKED WHERE DOES IT HURT PT STATED "HURT" REPEATEDLY. PT IS UNABLE TO STATE WHERE HIS PAIN IS LOCATED. PT IS GRIMICING AND FIGITING WITH FINGERS. AT ONE POINT HE BEGAN TO YELL " NO". PT IS UNABLE TO FOLLOW SIMPLE COMMANDS AT THIS TIME. WAS CALLED REGARDING PAIN MANAGMENT, ORDERS GIVEN TO FOR 25MCG OF FENTYNAL. WILL MONITOR PT. VITALS STABLE, HR IN THE 80'S.
--- NOTE | 2019-06-30 21:57 | NUR ---
UPDATE: AFTER PAIN MEDS WERE GIVEN PER EMAR, PT IS NOW RESTING. HE IS NO LONGER FIGITING OR KICKING IN BED.
--- NOTE | 2019-06-30 23:42 | NUR ---
UPDATE: PT BACK ON CPAP WITH 5L OF O2 CONNECTED. SPO2 AR 95% PT PLACED BACK ON CPAP DUE TO SPO2 DROPPING TO 88%, WHILE PATIENT WAS SLEEPING. TEMP AT 100.6, TYLENOL GIVEN PER EMAR. PT IS MOANING AND IS ONCE AGAIN AGITATED. WAS CALLED AND ORDERS FOR FENTYNAL PRN WERE GIVEN.
[2019-07-01 02:40] LABS: BASOPHILS ABSOLUTE AUTO 0.04 K/mm3 (0.00-0.23); BASOPHILS PERCENT AUTO 0 % (0-2); EOSINOPHILS ABSOLUTE AUTO 0.38 K/mm3 (0.00-0.68); EOSINOPHILS PERCENT AUTO 3 % (0-6); Hematocrit 36.5 % (37.0-53.0); Hemoglobin 10.9 g/dL (13.5-17.5); IMMATURE GRAN ABSOLUTE AUTO 0.04 K/mm3 (0.00-0.10); IMMATURE GRAN PERCENT AUTO 0 % (0-1); LYMPHOCYTES ABSOLUTE AUTO 2.17 K/mm3 (0.84-5.20); LYMPHOCYTES PERCENT AUTO 18 % (21-46); MONOCYTES ABSOLUTE AUTO 0.91 K/mm3 (0.16-1.47); MONOCYTES PERCENT AUTO 7 % (4-13); Mean Corpuscular HGB 27.4 pg (26.0-34.0); Mean Corpuscular HGB Conc 29.9 g/dL (31.5-36.5); Mean Corpuscular Volume 92 fL (80-100); Mean Platelet Volume 9.4 fL (9.1-12.4); NEUTROPHILS PERCENT AUTO 71 % (41-73); Platelet Count 258 K/mm3 (150-400); RDW Coefficient Variation 15.2 % (11.7-14.2); RDW Standard Deviation 51.1 fL (35.1-46.3); Red Blood Cell Count 3.98 M/mm3 (4.30-5.90); White Blood Cell Count 12.24 K/mm3 (4.00-11.30)
[2019-07-01 02:55] LABS: Albumin, Blood 2.8 g/dL (3.4-5.0); Anion Gap 11 mmol/L (6-16); Blood Urea Nitrogen 83 mg/dL (8-24); Bun/Creatinine Ratio 36.9 (12.0-20.0); CO2, Blood 21 mmol/L (21-32); Calcium, Blood 8.2 mg/dL (8.5-10.1); Chloride, Blood 120 mmol/L (98-108); Creatinine, Blood 2.25 mg/dL (0.60-1.20); Glomerular Filtration Rate 29 (60-); Glucose, Blood 51 mg/dL (70-99); Phosphorus, Blood 3.2 mg/dL (2.5-4.9); Potassium, Blood 4.2 mmol/L (3.5-5.5); Sodium, Blood 152 mmol/L (136-145)
--- NOTE | 2019-07-01 02:59 | NUR ---
UPDATE: ATTEMPTED TO TITRATE PRECEDEX, HOWEVER PT'S BP ELEVATED AND HR INCREASED INTO THE 110'S. AT BEDSIDE. PRECEDEX RESTARTED, CURRENTLY RUNNING AT 0.7MCG/KG/HR. PT IS AWAKE AND MOANING, PRN FENTYNAL GIVEN.
--- NOTE | 2019-07-01 05:12 | NUR ---
SPOKE TO REGARDING IV FLUIDS, SODIUM IS ELEVATED TO 152. SAID HE WOULD REVIEW CHART AND PLACE ORDERS.
--- NOTE | 2019-07-01 05:58 | NUR ---
SHIFT SUMMARY: SEE PREVIOUS NOTES. NO CHANGES SINCE LAST NOTE. PT CONTINUES TO RESPOND TO VERBAL AND PAINFUL STIMULI. PT HAS BEEN AGITATED AND MOANS. PT HAS BEEN GIVEN FENTYNAL PRN ORDERED FOR PAIN. PRECEDEX CONTINUES TO BE AT 0.7MCG/KG/MIN. WHEN ATTEMPTING TO TITRATE PRECEDEX, BP AND HR ELEVATE. RECOMMENDED TO CONTINUE WITH THE PRECEDEX DRIP. PT WAS GIVEN LABETALOL ONCE THIS SHIFT INDICATED. PT HAS VERY DRY MOUTH FROM, ORAL CARE WAS PROVIDED Q2H. PT IS CURRENTLY ON 5L OF 02 VIA OXYMIZER, SPO2 AT 94% PT CONTINUES TO SHIFT IN BED AND KICK LEGS CONSTANTLY. PT HAS BEEN REPOSITIONED AND REAJUSTED SEVERAL TIMES AN HOUR TO PREVENT INJURY. SWR IN PLACE. HASSAN DRAINING CLEAR YELLOW URINE, 700ML IN URINE OUTPUT. WILL CONTINUE TO MONITOR PT UNTIL REPORT IS GIVEN TO ONCOMING SHIFT. BED AT LOWEST LEVEL.
--- NOTE | 2019-07-01 06:27 | NUR ---
SHIFT SUMMARY: PT HAS REQUIRED PAIN MEDICATION ORDERED. PT RATES PAIN 8/10 TO BLE, HEAD AND BACK. MEDICATION DOES NOT SEEM TO ALLEVIATE PAIN, PHYSICAN IS AWARE. PT HAS BEEN HYPERTENSIVE, NITRO DRIP STARTED WHEN PT WAS TRANSFERED TO UNIT. NITRO DRIP CURRENTLY AT 45MCG/MIN. LABETALOL, AND CLONIDINE GIVEN PER EMAR. PT WAS GIVEN POTASSIUM REPLACED VIA PO. ORDERS FOR INSULIN WERE GIVEN DUE TO ELEVATED CBG. EDUCATION WAS PROVIDED TO PATIENT REGARDING INSULIN MEDICATION. WILL CONTINUE TO MONITOR PT UNTIL REPORT IS GIVEN TO ONCOMING SHIFT. CALL LIGHT WITHIN REACH
--- NOTE | 2019-07-01 08:25 | NUR ---
ASSESSMENT- PT RESTLESS IN BED, KICKING LEGS OFF SIDE, PULLING AT TUBES. EXPLAINED PLAN OF CARE, NO RESPONSE TO VERBAL REASSURANCE OR DIRECTIONS. PUPILS SMALL, REACTIVE, MOVES EXTREMITIES SPONTANEOUSLY, WITHDRAWS TO PAINFUL STIMULUS APPROPRIATELY. MOUTH VERY DRY-ORAL CARE DONE. MOANS OCCASIONALLY. AFIB, 60'S. BP STABLE. IV CHANGED TO D5 AT 75 CC/HR. BLOOD SUGAR STABLE. PRECEDEX GTT AT 0.7-DECREASED TO 0.6 MCG/KG/HR. PIV X 2 INTACT. MULTIPLE BRUISES BILATERAL ARMS. INCONTINENT, PERICARE, ATTENDS CHANGED. BED ALARM ON, FALL RISK. PLANS TO ATTEMPT EEG. DR. GALDAMEZ HERE-UPDATED.
--- NOTE | 2019-07-01 09:41 | NUR ---
EEG SET UP, PT UNABLE TO FOLLOW ANY DIRECTION, MOVES SPONTANEOUSLY, RESTLESS IN BED. HOLDS SELF RIGID WITH REPOSITIONING. VSS. TOLERATING OXYMIZER, SATURATIONS STABLE.
--- NOTE | 2019-07-01 11:14 | NUR ---
PT QUIET AFTER EEG COMPLETED. RESTLESS AT TIMES, LESS THAN BEFORE. DR. CARVAJAL AT BEDSIDE, PRECEDEX OFF, ROOM AIR, STABLE. BED ALARM ON. WRIST RESTRAINTS OFF, TUBES TAPED SECURELY.
--- NOTE | 2019-07-01 11:30 | NUR ---
PT'S DAUGHTER CALLED-UPDATED, SPOKE WITH DR. CARVAJAL.
--- NOTE | 2019-07-01 14:14 | NUR ---
PTS DAUGHTER HERE-UPDATED. PT WITH EYES OPEN, SEEMED TO RECOGNIZE HER. DID SAY "YES" A FEW TIMES. BP ELEVATED. RESTLESS AT TIMES.
--- NOTE | 2019-07-01 16:24 | NUR ---
TACHYPNEIC RATE 36-40 BPM. AFIB 90'S. SBP ELEVATED, RX GIVEN WITH IMPROVEMENT. NOTIFIED DR. CARVAJAL-UPDATE GIVEN. WILL CONTINUE TO MONITOR, HOLD IN ICU FOR NOW
--- NOTE | 2019-07-01 16:42 | NUR ---
Initial spiritual care note: Mr. Kurtz was unable to engage in meaningful conversation. He appeared restless and did not open eyes to voice or touch. Per chart, he is Hindu. I said the Lord's Prayer at bedside. No response. I will remain available to pt and family.
--- NOTE | 2019-07-01 18:39 | NUR ---
REPOSITIONED FREQUENTLY. OPENS EYES TO VERBAL STIMULUS, NO RESPONSE TO COMMANDS. MOVES RESTLESSLY. RR 32-36 BPM, MAINTAINING SATURATIONS 92-93% ON ROOM AIR. D5 AT 75 CC/HR. PIV X 2 INTACT. CONTINUE TO MONITOR
--- NOTE | 2019-07-01 19:05 | NUR ---
DR. CARVAJAL HERE-UPDATED, ASSESSED PT. PT OPENS EYES, FEW UNDERSTANDABLE WORDS. PLANS FOR PAIN RX.
--- NOTE | 2019-07-01 19:10 | NUR ---
ASSUME CARES: REPORT RECIEVED FROM HALEY OFF GOING RN. MONITOR INTACT SHOWING A FIB HEART RATE 80'S-90'S. LUNG SOUNDS CLEAR RESPIRATIONS 23-30'S. SPO2 95-98% ON ROOM AIR. ABDOMEN SOFT WITN BOWEL SOUNDS FOUR QUADS.HASSAN PATENT DRAINING ELIZABETH URINE . KENNEDY IN BED. DOES NOT FOLLOW REQUESTS, HOWEVER ABLE TO SPEAK IN A FEW UNDERSTANDABLE WORDS. SKIN FRAGILE DRY NO EDEMA NNOTED. CONTINUE TO MONITOR AND REPRORT CHANGE IN PATIENT CONDITION
--- NOTE | 2019-07-01 20:35 | NUR ---
DR CARVAJAL ON PHONE FOR UPDATE UPDATE GIVEN. CONTINUE TO MONITOR AND REPORT CHANGE IN PATIENT CONDITION
[2019-07-02 03:51] LABS: BASOPHILS ABSOLUTE AUTO 0.03 K/mm3 (0.00-0.23); BASOPHILS PERCENT AUTO 0 % (0-2); EOSINOPHILS ABSOLUTE AUTO 0.17 K/mm3 (0.00-0.68); EOSINOPHILS PERCENT AUTO 1 % (0-6); Hematocrit 36.5 % (37.0-53.0); Hemoglobin 11.1 g/dL (13.5-17.5); IMMATURE GRAN ABSOLUTE AUTO 0.05 K/mm3 (0.00-0.10); IMMATURE GRAN PERCENT AUTO 0 % (0-1); LYMPHOCYTES PERCENT AUTO 15 % (21-46); MONOCYTES ABSOLUTE AUTO 1.02 K/mm3 (0.16-1.47); MONOCYTES PERCENT AUTO 8 % (4-13); Mean Corpuscular HGB 27.4 pg (26.0-34.0); Mean Corpuscular HGB Conc 30.4 g/dL (31.5-36.5); Mean Corpuscular Volume 90 fL (80-100); Mean Platelet Volume 9.8 fL (9.1-12.4); NEUTROPHILS ABSOLUTE AUTO 9.83 K/mm3 (1.96-9.15); NEUTROPHILS PERCENT AUTO 76 % (41-73); Platelet Count 307 K/mm3 (150-400); RDW Coefficient Variation 15.3 % (11.7-14.2); RDW Standard Deviation 50.4 fL (35.1-46.3); Red Blood Cell Count 4.05 M/mm3 (4.30-5.90)
[2019-07-02 04:07] LABS: Bun/Creatinine Ratio 35.9 (12.0-20.0); Calcium, Blood 8.2 mg/dL (8.5-10.1); Creatinine, Blood 2.2 mg/dL (0.60-1.20); Potassium, Blood 3.6 mmol/L (3.5-5.5)
--- NOTE | 2019-07-02 07:30 | NUR ---
ASSUMED CARE BEDSIDE REPORT RECIEVED. PT IS LAYING IN BED FIDGETING WITH CORDS AND BLANKETS. PT AROUSES TO VOICE. UNABLE TO FOLLOW COMMANDS. SPEAKS SOME WORDS, CONFUSED. PT TENSE WITH MOVEMENT AND REPOSITIONING. VITAL SIGNS STABLE. PT ON 2L O2 NC. D5 INFUSING AT 75 ML/HR, AND NS TKO. HASSAN IN PLACE DRAINING CLEAR YELLOW URINE. ATTENDS IN PLACE. WILL CONTINUE TO MONITOR.
--- NOTE | 2019-07-02 15:54 | NUR ---
TRANSFER TO PCU REPORT CALLED AND ALL QUESTIONS ANSWERED. PT TAKEN TO PCU 1 VIA BED. ALL MEDS AND BELONGINGS TAKEN WITH PT.
--- NOTE | 2019-07-02 18:41 | NUR ---
PT TRANSFERRED FROM ICU 11 AT AROUND 1600 REPORT RECEIVED FROM TABITHA RAE. PT IS HERE FOR PNEUMONIA CURRENTLY RECEIVING IV ABO. PT IS ALERT AND AWAKE ONLY RESPONDS TO VERBAL STIMULI, SOMETIMES ABLE TO ANSWER YES/NO QUESTIONS VOICE IN LOW QUALITY. PT IS CURRENTLY ON ROOMAIR SATS ABOVE 94% PT IS A MOUTH BREATHER, BIPAP ON STANDBY NEEDED. PT PLAN TO TRANSITION TO DNR COMFORT CARE PER REPORT FAMILY INVOLVED IN DECISION MAKING. FULL CODE OF THIS TIME. PT CURRENTLY NPO, ON BEDREST, REPOSITIONED Q2 HRS. IV FLUIDS RUNNING D5W AT 100MLS/HR. BP SYSTOLIC ON THE 160'S, HR AFIB ON 110'S THE REST OF THE VITALS WNL. PT CURRENTLY RESTING IN BED CALL LIGHTS WITHIN REACH WILL RESPORT TO ONCOMING SHIFT
--- NOTE | 2019-07-02 21:36 | NUR ---
PATIENT AWAKE HOLDS EYE CONTACT, ATTEMPTS FEW WORDS BUT MUMBLES, AND VERY DIFFICULT TO UNDERSTAND. PATIENT HOLDING HIS BODY VERY STIFF, INCONT OF SOFT BROWN BM, PATIENT PUSHING AGAINST STAFF DURING ATTENDS CHANGE, BUT NO OTHER MOVEMENT SEEN. PATIENT BREATHING WITH MOUTH OPEN AND MOUTH IS VERY DRY, ORAL CARE DONE.
[2019-07-03 05:03] LABS: BASOPHILS ABSOLUTE AUTO 0.03 K/mm3 (0.00-0.23); BASOPHILS PERCENT AUTO 0 % (0-2); EOSINOPHILS PERCENT AUTO 2 % (0-6); Hematocrit 34.5 % (37.0-53.0); Hemoglobin 10.6 g/dL (13.5-17.5); IMMATURE GRAN PERCENT AUTO 1 % (0-1); LYMPHOCYTES PERCENT AUTO 16 % (21-46); MONOCYTES PERCENT AUTO 9 % (4-13); Mean Corpuscular HGB 27.7 pg (26.0-34.0); Mean Corpuscular HGB Conc 30.7 g/dL (31.5-36.5); Mean Corpuscular Volume 90 fL (80-100); Mean Platelet Volume 9.6 fL (9.1-12.4); NEUTROPHILS ABSOLUTE AUTO 8.44 K/mm3 (1.96-9.15); NEUTROPHILS PERCENT AUTO 73 % (41-73); Platelet Count 293 K/mm3 (150-400); RDW Coefficient Variation 15.5 % (11.7-14.2); RDW Standard Deviation 50.7 fL (35.1-46.3); Red Blood Cell Count 3.82 M/mm3 (4.30-5.90); White Blood Cell Count 11.57 K/mm3 (4.00-11.30)
[2019-07-03 05:18] LABS: Albumin, Blood 2.5 g/dL (3.4-5.0); Anion Gap 9 mmol/L (6-16); Blood Urea Nitrogen 61 mg/dL (8-24); CO2, Blood 21 mmol/L (21-32); Chloride, Blood 118 mmol/L (98-108); Creatinine, Blood 2.03 mg/dL (0.60-1.20); Glomerular Filtration Rate 33 (60-); Glucose, Blood 122 mg/dL (70-99); Phosphorus, Blood 3.1 mg/dL (2.5-4.9); Potassium, Blood 3.4 mmol/L (3.5-5.5); Sodium, Blood 148 mmol/L (136-145)
--- NOTE | 2019-07-03 06:40 | NUR ---
SUMMARY PATIENT CONTINUES TO BE MOSTLY NONVERBAL, GIVES GOOD EYE CONTACT, GROSS MOVEMENT TO ALL EXTREMITIES, BUT NOT FOLLOWING DIRECTIONS. FREQUENT ORAL CARE DONE DUE TO DRY MOUTH AND MOUTH BREATHING. PATIENT CONTINUES TO BE ON ROOM AIR T/O NIGHT WITH BIOX >91% T/O NIGHT. PATIENT REMAINS IN AFIB WITH CONTROLLED RATE. PATIENT INCONT OF SOFT BROWN STOOL SEVERAL TIMES DURING THE NIGHT, BUTTOCKS RED, PLACED CREAM TO RED AREA.
--- NOTE | 2019-07-03 10:31 | NUR ---
Chance was resting and appeared stable and well cared for. He was not initially responsive to verbal stimulation but showed eventual signs of awareness and arousability during the course of the visit. I provided compassionate bedside presence combined with audible prayer for relief and encouragement. Chance remained stationary, calm and somnolent throughout.
--- NOTE | 2019-07-03 10:44 | NUR ---
Pt resting in bed upon arrival. Pt awake but is non verbal. Pt appears mildly anxious, and frail. Discussed case with bedside RN Destiyn. Destiny will return family's phone call then Palliative Care will call family. Discussed case with Lambert Hernandez from [employer]. Palliative Care will remain available.
--- NOTE | 2019-07-03 15:47 | NUR ---
Pt's daughter and have arrived to visit with Pt. Pt's Jasmyne appears to be holding back tears. Pt's daughter Sun requests to have conversation with this RN out in the tong. Sun reports having discussion with the rest of the siblings and are in agreement with placing Pt on comfort care. Jo Ann reports family is not telling at this time due to her emotional distress. Sun also reports family is unable to care for Pt at home and is requesting for Pt to pass in the hospital. Instructed Sun that if Pt is not imminent then a discharge plan with hospice may be needed. Sun reports Pt is a as well. Sun reports plan to place Pt on comfort care tomorrow after hospitalist has made his rounds to determin if there has been any changes in Pt's condition. Sun is requesting a call from hospitalist tomorrow. No other concerns reported at this time. Spoke with Bedside RN Destiny and discussed plan. Called and spoke with Dr Huerta. Relayed daughter Sun's plan and request for a phone call tomorrow. Palliative Care will remain available.
--- NOTE | 2019-07-03 19:39 | NUR ---
PT SUMMARY: PT STILL RESPONSIVE TO VERBAL STIMULI, MAKES EYE CONTACT AND FACIAL EXPRESSIONS. HRR AFIB ON THE 90'S, BP SYSTOLIC 140'S, PT WAS RUNNING A LOW GRADE FEVER OF 100.9 TYLENOL SUPP GIVEN AND EFFECTIVE TEMP WAS DOWN TO 99.5. PT STARTED ON CLINIMIX FOR NUTRITION VIA PERIPHERAL IV. FAMILY WAS IN TO VISIT PALLIATIVE CARE NURSE TALKED TO FAMILY ABOUT PT'S CONDITION AND PLAN OF CARE FAMILY WANTS TO GET CONTACTED BY PROVIDER IN THE AM ON HOW THE PT IS PROGRESSING, FAMILY IS ENCOURAGED TO TRANSITION PT TO DNR COMFORT CARE IF PT IS NOT MAKING ANY PROGRESS. PT HAS BEEN REPOSITIONED Q 2HRS, REMAINED STRICT NPO, ORAL CARE SUCTION SWABS PROVIDED. PT RESTING IN BED CALL LIGHTS IN REACH REPORT GIVEN TO ONCOMING SHIFT NURSE.
--- NOTE | 2019-07-03 20:02 | NUR ---
Assumed care Report recieved from KYRA Dixon at 1900 and care assumed. Pt sitting in bed, tachypneic, eyes open to verbal but overall unresponsive. Vitals reveal temperature of 102.1, RR 28 appears labored and with abdominal muscle use. BP elevated. blankets removed, temperature in room lowered, ice packs placed on pt. Will continue to monitor closely. bait man aware of pt condition.
--- NOTE | 2019-07-04 03:43 | NUR ---
UPDATE Throughout shift, temperature fluctuating between 99.7-102.1 F. Ice packs and fan placed, blankets removed and temperature in room lowered. Pt also with hypertension and tachycardia, labatolol 10mg given x2 this shift. 1L NC placed for comfort and to bring saturations to mid 90's from low 90's. he remains overall nonresponsive, opens eyes to command/voice, unable to express needs. Crowder cath patent and draining. Pt becomes tremulous and rigid at times. These episodes last 2-5 seconds and then pt relaxes. He remains full code status.
[2019-07-04 04:16] LABS: Bun/Creatinine Ratio 28.3 (12.0-20.0); Calcium, Blood 8.1 mg/dL (8.5-10.1); Creatinine, Blood 1.87 mg/dL (0.60-1.20); Magnesium, Blood 2.8 mg/dL (1.6-2.4); Phosphorus, Blood 3.4 mg/dL (2.5-4.9); Potassium, Blood 3.7 mmol/L (3.5-5.5)
--- NOTE | 2019-07-04 07:28 | NUR ---
Shift Summary Pt remains febrile and tachypneic throughout night. BP and HR elevated requiring labatolol and hydralazine prn per orders. he remains nonverbal. No improvements since start of shift. Turned q2. Crowder catheter patent and draining. Clinimix infusing 90mls/hr. ABX infused per orders. Coccyx red, barrier cream applied q2 with each turn. Strick NPO for safety. Oral care provided q4 hours and prn for dry mucous membranes. Pt with occasional rigidity and tremors. See previous notes and shift summary for details of shift. Overall, pt appears frail and with continued decline as evidenced by unstable VS, remains nonverbal, no longer tracking with eye contact. report given to KYRA Richardson who assumes care.
--- NOTE | 2019-07-04 07:50 | NUR ---
The pt is lying in bed, eyes closed, occasionally grunting. He does not respond to verbal or tactile stimulation. He does not open his eyes. He is tachypneic, spo2 95 on room air. Adilia davis RN tells me at bedside report that he has occasionally opened his eyes for her, but that he has made no improvements overnight. He is hypertensive right now, and Diana RN tells me that he has had at least three doses of antihypertensive medications overnight for treatment.
--- NOTE | 2019-07-04 08:00 | NUR ---
BLOOD PRESSURE 154/70 AFTER ONE DOSE OF 10 MG LABETOLOL, PER PRN ORDERS.
--- NOTE | 2019-07-04 09:29 | NUR ---
Returned Pt's daughter Snu's phone call. Family is leaning toward comfort care but is unsure. Pt resting in bed with his eyes closed. Pt appears comfortable with no S/S of distress at this time. Spoke with Bedside RN Debra and operation supervisor Kati. Reviewed plan and discussed case. Palliative Care will remain available.
--- NOTE | 2019-07-04 12:40 | NUR ---
Family is at the bedside: pt's son, and pt's . Pt's son spoke with Landy Macdonald, engineering patternmakerprincipal planner, and Sun, pt's daughter, has decided that the pt will go home on hospice on Monday. They do not want the pt to go to a facility, and the pt's has dementia so she is not to be notified of this as it would cause her great distress.
--- NOTE | 2019-07-04 15:30 | NUR ---
Jasmyne and son at the bedside. The pt was repositioned, oral care completed, and pericare done for stool incontinence. Crowder catheter bag emptied of 1000 cc of dark yellow urine. The family states that they have no needs at this time. The pt appears to be sleeping comfortably. He does not open his eyes or respond to us during the care. He does have occasionally some spontaneous movements of his arms and hands, his states.
--- NOTE | 2019-07-04 16:33 | NUR ---
Telephone report given to Brian Quintanilla RN, at this time. The pt will be transferred to room 348 soon. Family was notified by Rosario Phelan.
--- NOTE | 2019-07-04 16:46 | NUR ---
3370 ASSUMED CARE OF PT FROM [facility]. REPORT GIVEN. PT ON CC . NON RESPONSIVE AT THIS TIME TO VOICE STIMULATION. BREATHING DEEPLY AND SLEEPING SOUNDLY UPON ARRIVAL. NO FAMILY PRESENT. WILL CONTINUE TO MONITOR.
--- NOTE | 2019-07-04 16:48 | NUR ---
PT ARRIVED TO UNIT. SLEEPING WITH NO DISTRESS NOTED.
--- NOTE | 2019-07-04 18:50 | NUR ---
TRANFER THIS SHIFT. NO CHANGES TO CONDITION. SLEEPING SOUNDLY AND NO DISTRESS NOTED.
--- NOTE | 2019-07-04 21:09 | NUR ---
1909 REPORT RECEIVED FROM KYRA BLANCHARD; PT LUNG SOUNDS ARE WHEEZING THROUGHOUT. 1936 PT CONTINUES TO HAVE LUNG SOUNDS WHEEZING AND GURGLING; PT IS COMFORT CARE PATIENT; ROXANOL 20MG IVP GIVEN. NO FAMILY AT SIDE. 2006 PATIENT IS RESTING COMFORTABLY IN NO RESPIRATORY DISTRESS. NO FAMILY AT SIDE. 2044 PT WITH NO HEART BEAT DETECTED; THIS NURSE CONTACTED PRIMO ALLRED RN, CHARGE NURSE WHOM CAME TO ROOM AND CONFIRMED NO HEART BEAT OR RESPIRATIONS. 2099 THIS NURSE CALLED CASE--DAUGHTER AT [phone] AND ADVISED HER OF THE ABOVE. CASE INTENDS TO SEE FATHER THIS EVENING; CASE REQUESTED [facility] IN [place]; DECLINED PASTORAL CARE. THIS NURSE CONTACTED BRUNO GANNON NP AND ADVISED HIM OF PATIENTS EXPIRING WITH ACKNOWLEDGEMENT NOTED.
== END 2019-07-04 20:45 | DRG 871 ==
LOC: ER 05:52 → MEDS 07:43 → ICUW 07:43 → MEDS 08:58 → ICUW 06-29 00:32 → PCU 07-02 16:10 → MEDS 07-04 16:42
PROVIDERS: Emergency Medicine; Internal Medicine; Internal Medicine Critical Care Medicine; Nurse Practitioner Acute Care; ADMIT Family Medicine
PROC: 8E0ZXY6 Isolation (ICD-10-PCS; 2019-06-26)
PROC: 5A09357 Assistance with Respiratory Ventilation, Less than 24 Consecutive Hours, Continuous Positive Airway Pressure (ICD-10-PCS; principal; 2019-06-28)
DX: A41.9 Sepsis, unspecified organism (principal); J96.01 Acute respiratory failure with hypoxia; J69.0 Pneumonitis due to inhalation of food and vomit; G92 Toxic encephalopathy; D69.3 Immune thrombocytopenic purpura; R65.20 Severe sepsis without septic shock; E87.0 Hyperosmolality and hypernatremia; I50.42 Chronic combined systolic (congestive) and diastolic (congestive) heart failure; Z51.5 Encounter for palliative care; G30.9 Alzheimer's disease, unspecified; K21.9 Gastro-esophageal reflux disease without esophagitis; Z85.46 Personal history of malignant neoplasm of prostate; N18.3 Chronic kidney disease, stage 3 (moderate); F02.80 Dementia in other diseases classified elsewhere, unspecified severity, without behavioral disturbance, psychotic disturbance, mood disturbance, and anxiety; D63.1 Anemia in chronic kidney disease; E04.1 Nontoxic single thyroid nodule; D69.1 Qualitative platelet defects; I48.91 Unspecified atrial fibrillation; H91.90 Unspecified hearing loss, unspecified ear; E87.6 Hypokalemia; I73.9 Peripheral vascular disease, unspecified; R13.10 Dysphagia, unspecified; Z20.828 Contact with and (suspected) exposure to other viral communicable diseases
CPT/HCPCS: 0099U; 36415; 36600; 51703; 71045; 80048; 80053; 80069; 81001; 82803; 82947; 83605; 83735; 83880; 84100; 84443; 85025; 87040; 87086; 92526; 92610; 93005; 93010; 93306; 94640; 94660; 94760; 94762; 95819; 96365; 96367; 99285-25; A9270; C9113; J0360; J0456; J0696; J1630; J1650; J1720; J1940; J1953; J2060; J2543; J3010; J3480; J7030; J7050; J7070; J7120; J7512; U0003